=== PATIENT | female | born 1970 | race Caucasian/White ===

== ENCOUNTER 2017-09-01 23:09 | Emergency (ER) | payer OTHER ==
[~2017-09-01] VITALS: Ht 170.2 cm; Wt 79.5 kg
[~2017-09-01 23:09] MED LIST: MOTRIN800 MG PO
[2017-09-02] MEDS ORDERED: MOTRIN800 MG PO (01:26)
[2017-09-02] MEDS ORDERED: ULTRAM50 MG PO (01:26)
[2017-09-02 02:03] VITALS: BP 131/90
== END 2017-09-02 02:07 | disposition home or self-care (01) ==
LOC: EME 23:09
DX: S93.124A Dislocation of metatarsophalangeal joint of right lesser toe(s), initial encounter (principal); Z90.710 Acquired absence of both cervix and uterus; Z90.49 Acquired absence of other specified parts of digestive tract; Z88.8 Allergy status to other drugs, medicaments and biological substances
CPT/HCPCS: 73630; 99281; 99284; S0020